=== PATIENT | male | born 1960 | race Caucasian/White ===

== ENCOUNTER 2023-05-20 08:28 | Outpatient (CLI) | payer BC | END 2023-05-20 08:29 | disposition home or self-care (01) | LOC: SCSMRI 08:28 | PROVIDERS: ATTEND Orthopaedic Surgery | DX: M48.061 Spinal stenosis, lumbar region without neurogenic claudication (principal); M47.816 Spondylosis without myelopathy or radiculopathy, lumbar region; M47.817 Spondylosis without myelopathy or radiculopathy, lumbosacral region; M43.17 Spondylolisthesis, lumbosacral region | CPT/HCPCS: 72148 ==